=== PATIENT | female | born 1970 | race African-American/Black ===

== ENCOUNTER 2016-05-30 13:45 | Day surgery (SDC) | payer MEDICARE, MEDICAID ==
--- NOTE | 2016-05-30 08:23 | History and Physical Report ---
DATE OF EVALUATION: 05/30/2016. CHIEF COMPLAINT AND HISTORY OF CHIEF COMPLAINT: This patient presents with a history of an implanted spinal cord stimulator for intractable cervical radiculitis on 03/06/2016. She developed breakdown at the midline incisional site. She was seen after cultures identified infection. She was treated with antibiotics and, although resolving, the wound clinic requested removal of the device to facilitate healing. She is here for removal of an implanted spinal cord stimulator internal generator. PAST MEDICAL HISTORY: Hypertension. REVIEW OF SYSTEMS: The patient seems appropriate and in no acute distress. The remainder of the systems review shows glasses, dentures, headaches, blood pressure problems, chronic colon disease. SOCIAL HISTORY: Caffeine, cigarette smoking. FAMILY HISTORY: Asthma, diabetes, hypertension, cancer. PAST SURGICAL HISTORY: Gallbladder surgery, hysterectomy, spinal cord stimulator implant. ALLERGIES: Ultram, penicillin, Tylenol, morphine. MEDICATIONS ON ADMISSION: To be provided. PHYSICAL EXAMINATION: General: Height is 5 feet, 5 inches. Weight is 200 pounds. Vital Signs: Unavailable. HEENT: Within normal limits. Lungs: Clear. Heart: Regular rate and rhythm. Abdomen: Nontender. Musculoskeletal: Examination of the musculoskeletal system shows the incision for the leads approximating the mid to upper thoracic spine. There is a lower margin at the inferior incisional site which appears to be showing some mild breakdown. No drainage is identified. The incisional site at the posterior gluteal margin is intact. Sensory bates are intact. Neurologic: Cranial nerves are intact. IMPRESSIONS: 1. INTRACTABLE CERVICAL RADICULITIS, ICD10 CODE M54.13. 2. SPINAL CORD STIMULATOR INTERNAL GENERATOR WOUND BREAKDOWN. PLANS: The patient is here for removal of the stimulator based upon the request of the wound clinic. The procedure will be considered outpatient. An overnight stay should not be required. Selvin Medley D.O. Date Time JOB NUMBER: [id number] cc: Clarence Dwyer
[~2016-05-30 13:45] MED LIST: ACETAMINOPHEN 1000MG/100 ML PREMIX IV ONE; CLINDAMYCIN 600MG/50ML PREMIX 50 ML IVPB ONE; FAMOTIDINE 20MG TABLET PO ONE; MECLIZINE 25 MG TABLET PO ONE; METOCLOPRAMIDE 10 MG TABLET PO ONE; VANCOMYCIN HCL 1,000 MG in 0.9 % SODIUM CHLORIDE 250ML 250 ML IVPB ONE
[2016-05-30] MEDS ORDERED: HYDROMORPHONE HCL 2 MG/ML VIAL IV ONE (14:00)
[2016-05-30] MEDS ORDERED: PROPOFOL 10 MG/ML VIAL IV ONE (14:00)
[2016-05-30] MEDS ORDERED: LIDOCAINE 1% W/EPI 1:200,000 MPF 30ML SQ ONE (14:00)
[2016-05-30] MEDS ORDERED: BUPIVACAINE 0.5% W/EPI MPF 30 ML VIAL IVP ONE (14:00)
[2016-05-30] MEDS ORDERED: MIDAZOLAM HCL 2MG/2ML VIAL IV ONE (14:00)
[2016-05-30] MEDS ORDERED: LIDOCAINE 2% MDV (20MG/ML) 20ML VIAL IV ONE (14:00)
[2016-05-30] MEDS ORDERED: OXYCODONE/APAP 10MG-325MG TABLET PO ONE (14:00)
[2016-05-30] MEDS ORDERED: FENTANYL PF 100MCG/2ML VIAL IV ONE (14:00)
[2016-05-30 14:25] LABS: BASO % 0.9 % (0-6); EOS % 3.3 % (0-6); HEMATOCRIT 40.5 % (35.0-47.0); HEMOGLOBIN 13.7 gm/dl (11.6-16.0); LYMPH % 38.1 % (16-45); MEAN CELL VOLUME 92.9 fl (81-97); MEAN CORPUSCULAR HEMOGLOBIN 31.4 pg (27-33); MEAN CORPUSCULAR HGB CONC 33.8 g/dl (32-36); MEAN PLATELET VOLUME 9.1 fl (7.4-10.4); MONO % 8.7 % (0-9); PLATELET COUNT 303 K/uL (130-400); RED BLOOD COUNT 4.36 M/uL (3.80-5.40); RED CELL DISTRIBUTION WIDTH 13.4 % (11.5-14.5); WHITE BLOOD COUNT W/O DIFF 4.3 K/uL (4.2-12.2)
[2016-05-30 14:33] LABS: ANION GAP 11.1 (7-16); BLOOD UREA NITROGEN 8 mg/dL (7-17); CARBON DIOXIDE 27.9 mmol/L (22-30); CREATININE 0.8 mg/dL (0.52-1.04); EST GLOMERULAR FILTRATION RATE > 60 ml/min; GLUCOSE,RANDOM 90 mg/dL (70-110); INR 1.02; PARTIAL THROMBOPLASTIN TIME 40.5 SECONDS (24.5-39.1); PROTHROMBIN TIME (PATIENT) 11.5 SECONDS (9.5-12.1)
--- NOTE | 2016-05-31 13:41 | Operative Note ---
PAIN SERVICE OPERATIVE REPORT DATE OF PROCEDURE: 05/30/2016. PREOPERATIVE DIAGNOSES: 1. CERVICAL RADICULITIS, ICD10 CODE M54.13. 2. WOUND BREAKDOWN AND INFECTION. PROCEDURES: 1. Incision, subcutaneous dissection, and removal of two spinal cord stimulators. 2. Incision, subcutaneous dissection, and removal of internal generator and extensions. SURGEON: Selvin Medley D.O. ANESTHESIA: Local sedation. ANESTHESIA PROVIDER: Ramo Reynaga CRNA INDICATIONS: This patient presents with a history of an implanted spinal cord stimulator in February of 2016. The patient presented to a local emergency room approximately two to three weeks ago with what appeared to be a small, pustular area at the lower incisional site at the midline. It was tested and found to be infectious. At that point she was placed on placed on antibiotics and was treated by the wound clinic. At that point the wound clinic recommended the leads be removed. She is here for removal of the system DESCRIPTION OF PROCEDURE: Intravenous line, vital sign monitoring, and IV sedation. Prepped and draped with sterile technique. The midline incision at the cervical spine for the leads was infiltrated with local. An incision was made, and subcutaneous dissection was conducted to the leads. Cultures were taken. The leads, anchor, and all sutures were removed intact. Antibiotic irrigation and Bovie for hemostasis. At the left posterior superior gluteal margin generator pouch, the skin was infiltrated, an incision was made and subcutaneous dissection was conducted to the generator. The generator was then removed intact along with the all sutures. Antibiotic irrigation and Bovie for hemostasis. The incision was closed with Vicryl to the fascia and hemanth for the skin. Dressings were placed. She was transported to the recovery room stable showing no side effects from the procedure. DISCHARGE INSTRUCTIONS: 1. The sites will remain clean and dry. No showering or bathing in any way. 2. She is receiving intravenous antibiotics through an indwelling IV catheter placed by the wound clinic and managed by the wound clinic. She will continue under their direction. 3. She will be seen in the office in five to seven days for removal of the hemanth. 4. All other instructions were provided including numbers to contact given. 5. She was then discharged. Selvin Medley D.O. Date Time JOB NUMBER: [id number] cc: Clarence Dwyer
== END 2016-05-30 18:20 | disposition home or self-care (01) ==
LOC: SUR 13:45
PROVIDERS: ATTEND Pain Medicine Interventional Pain Medicine
DX: T81.4XXA Infection following a procedure, initial encounter (principal); A49.02 Methicillin resistant Staphylococcus aureus infection, unspecified site; I10 Essential (primary) hypertension; E78.00 Pure hypercholesterolemia, unspecified
CPT/HCPCS: 85025; 85730; 85610; 80048; 85002; 63661; 63688; 00300; J3370; J3010; J1170; J7050

== ENCOUNTER 2016-10-03 12:12 | Day surgery (SDC) | payer MEDICARE, MEDICAID ==
--- NOTE | 2016-10-03 06:53 | History and Physical - [facility] ---
CHIEF COMPLAINT/HISTORY OF CHIEF COMPLAINT: This patient with a history of intractable left sided cervical radiculitis had a spinal cord stimulator implanted on 03/06/16. Because of a pouch infection the system was removed on . After appropriate antibiotic management and clearance through infectious disease and her primary she is here for replacement of the system. PAST MEDICAL HISTORY: Hypertension. PAST SURGICAL HISTORY: Gallbladder surgery, hysterectomy, and spinal cord stimulator implant and removal. MEDICATIONS ON ADMISSION: List to be provided. ALLERGIES: ULTRAM, PENICILLIN, TYLENOL #3 AND MORPHINE. FAMILY/PSYCHOSOCIAL HISTORY: Social history - Caffeine and cigarette smoking. Family history - Asthma, diabetes, hypertension and cancer. SYSTEMS REVIEW: The patient seem appropriate in no acute distress. The remainder of the systems review is positive for glasses, dentures, headaches, blood pressure problems, and chronic colon disease. PHYSICAL EXAMINATION: Height is 5'5", weight is 200 pounds. Vital signs are not available. HEENT: Within normal limits. LUNGS: Clear. HEART: Regular rate and rhythm. ABDOMEN: Nontender. MUSCULOSKELETAL: Examination of the musculoskeletal system shows the primary pain pattern to be neck, shoulder, and arm all to the left. Sensory bates are intact. NEUROLOGIC: Cranial nerves are intact. IMPRESSION: CERVICAL RADICULITIS, ICD10 CODE M54.13. PLAN: This patient is here for replacement of spinal cord stimulator with internal generator. The procedure may be outpatient although an overnight stay will be evaluated. All of the potential risks, side effects, and complications have been carefully reviewed and discussed including nerve root injury, spinal cord injury, dural puncture and infection. JOSSE BYRNE D.O. Date & Time JOB NUMBER: [id number] MTDD
[~2016-10-03 12:12] MED LIST changes: -CLINDAMYCIN 600MG/50ML PREMIX 50 ML IVPB ONE
[2016-10-03] MEDS ORDERED: HYDROMORPHONE HCL 2 MG/ML VIAL IV ONE (14:00)
[2016-10-03] MEDS ORDERED: BUPIVACAINE 0.5% W/EPI MPF 30 ML VIAL IVP ONE (14:00)
[2016-10-03] MEDS ORDERED: LIDOCAINE 1% W/EPI 1:200,000 MPF 30ML SQ ONE (14:00)
[2016-10-03] MEDS ORDERED: TEMAZEPAM 15 MG CAPSULE PO PRN ×2 (16:39)
[2016-10-03] MEDS ORDERED: AL HYDROX/MAG HYDROX 30ML UD PO PRN (16:39)
[2016-10-03] MEDS ORDERED: METOCLOPRAMIDE HCL 10 MG/2 ML VIAL IVP PRN (16:39)
[2016-10-03] MEDS ORDERED: METOCLOPRAMIDE 10 MG TABLET PO PRN (16:39)
[2016-10-03] MEDS ORDERED: HYDROMORPHONE HCL 1 MG/ML CPJ IM PRN (16:39)
[2016-10-03] MEDS ORDERED: ACETAMINOPHEN 325 MG TAB PO PRN ×2 (16:39)
[2016-10-03] MEDS ORDERED: OXYCODONE/APAP 10MG-325MG TABLET PO PRN (16:39)
[2016-10-03] MEDS ORDERED: DIPHENHYDRAMINE HCL 25 MG CAPSULE PO PRN ×2 (16:39)
[2016-10-03] MEDS ORDERED: SENNOSIDES/DOCUSATE SODIUM UD CAPSULE PO PRN ×2 (16:39)
[2016-10-03] MEDS ORDERED: HYDROMORPHONE HCL 2 MG/ML VIAL IM PRN (16:39)
[2016-10-03] MEDS ORDERED: DIPHENHYDRAMINE HCL IV 50 MG/ML VIAL IVP PRN ×2 (16:39)
[2016-10-03] MEDS ORDERED: HYDROCODONE/APAP 7.5/325MG TABLET PO PRN ×2 (16:39)
[2016-10-03] MEDS ORDERED: PATIENT OWN MED: LORAZEPAM 0.5 MG PO PRN (17:13)
[2016-10-03] MEDS ORDERED: QUETIAPINE 200 MG PO SCH (18:00)
[2016-10-03] MEDS: OXYCODONE/APAP 10MG-325MG TABLET PO PRN (19:53)
[2016-10-03] MEDS: BUPROPION 200 MG PO SCH (21:04)
[2016-10-03] MEDS ORDERED: PATIENT OWN MED: SIMVASTATIN 20 MG PO SCH (22:00)
[2016-10-03] MEDS ORDERED: 0.9 % SODIUM CHLORIDE 10ML SYR IVP SCH (22:00)
[2016-10-03] MEDS ORDERED: PATIENT OWN MED: TRAZODONE 100 MG PO SCH (22:00)
[2016-10-03] MEDS ORDERED: PATIENT OWN MED: GABAPENTIN 300 MG PO SCH (22:00)
[2016-10-03] MEDS ORDERED: QUETIAPINE 300 MG PO SCH (22:00)
[2016-10-04] MEDS ORDERED: VANCOMYCIN HCL 1,000 MG in 0.9 % SODIUM CHLORIDE 250ML 250 ML IVPB ONE (01:30)
[2016-10-04] MEDS: OXYCODONE/APAP 10MG-325MG TABLET PO PRN ×2 (04:22→09:45)
[2016-10-04] MEDS ORDERED: PATIENT OWN MED: VRAYLAR 3 MG PO SCH (08:00)
[2016-10-04] MEDS ORDERED: HCTZ PO SCH (08:00)
[2016-10-04] MEDS ORDERED: PATIENT OWN MED: POTASSIUM 20 MEQ PO SCH (08:00)
[2016-10-04] MEDS ORDERED: PATIENT OWN MED: DULOXETINE 60 MG PO SCH (08:00)
[2016-10-04] MEDS ORDERED: LISINOPRIL PO SCH (08:00)
[2016-10-04] MEDS: BUPROPION 200 MG PO SCH (08:49)
[2016-10-04] MEDS ORDERED: PATIENT OWN MED: DULOXETINE 30 MG PO SCH (12:00)
--- NOTE | 2016-10-09 07:40 | RADIOLOGY REPORT ---
EXAM: CERVICAL SPINE HISTORY: POST SPINAL CORD STIMULATOR IMPLANT. TECHNIQUE: AP supine portable view of the cervical spine was obtained. Comparison: Supine portable spine 03/06/16. FINDINGS: Stimulator wires are seen which extend up from the thoracic level into the cervical level up to the approximate C2-C3 level. IMPRESSION: SPINAL STIMULATOR WIRES EXTEND UP THE CERVICAL REGION TO THE APPROXIMATE LEVEL OF THE C2-C3 INTERSPACE. JOB NUMBER: [id number] MTDD
--- NOTE | 2016-10-12 11:34 | Operative Note ---
DATE OF SURGERY: 10/03/2016. PREOPERATIVE DIAGNOSIS: Cervical radiculitis, ICD-10 Code M54.13. OPERATION: 1. Fluoroscopically guided right epidural access, T1-2, placement of spinal cord stimulator lead 1, a [employer] Infinion 16, 6 electrodes positioned left C2. 2. Complex programming lead 1, 20 minutes. 3. Fluoroscopically guided epidural access, right, T2-3, placement of spinal cord stimulator lead 2, a [employer] Infinion 16, 6 electrodes positioned left of midline, medial to lead 1. 4. Complex programming lead 2, 20 minutes. 5. Incision, subsection, anchoring of lead1 and lead 2 to deep supraspinous fascia using a [employer] locking anchor. 6. Incision, subsection, creation of subcutaneous pouch at right posterior gluteal margin, placement of generator, identified as [employer] programmable rechargeable. 7. Tunneling between pouches, placement of external portion of lead 1 and lead 2 into generator pouch, each lead interfaced with a bifurcate extension, each bifurcate extension interfaced with the generator. 8. Securing of generator pouch using nonabsorbable suture, placement of leads into pouch, and then closure of incision with Vicryl for fascia, running subcuticular Vicryl for skin, Dermabond closure. 9. Complex programming internal generator, recovery room 20 minutes. Surgeon: Selvin Medley DO. Anesthesia: Local sedation. Anesthesia Provider: SERA Veras. Indication: This patient presents with a history of intractable cervical radiculitis and a history of preimplantation with a cervical spinal cord stimulator at surgery. PROCEDURE: Intravenous line, vital sign monitoring, IV sedation, prep, drape, sterile technique with the patient prone. The epidural interspace right of the midline at T1-2 and 2-3 infiltrated local. Then 2 separate epidural needles with loss of resistance into the space at T1-2. Spinal cord stimulator lead 1, a [employer] Infinion 16, 6 electrodes, positioned left C2. Complex programming of lead 1 over 20 minutes resulting in a pattern of stimulation which extended down the shoulder and arm. With the epidural access right of the midline at T2-3, spinal cord stimulator lead 2, also a [employer] Infinion 16, 6 electrodes, positioned left of the midline, but slightly lateral to lead 1. Complex programming of lead 2 over 20 minutes resulted in a pattern of stimulation which came from the shoulder into the area of the neck. Both leads were activated simultaneously with a complete band of stimulation across the neck into the shoulder and arm. Patient indicating we are in all the areas of the pain. The skin above and below the needles infiltrated, an incision made in subcutaneous. Dissection was conducted in supraspinous fascia. Each lead was then anchored to the deep fascia with an anchoring device and nonabsorbable suture. Antibiotic irrigation, Bovie for hemostasis. At the right posterior gluteal fold margin, a site picked by the patient for the generator. A skin incision was made and subcutaneous dissection was conducted to form a pouch of suitable size and depth for the generator. Generator identified as [employer] programmable rechargeable. A tunneling tool was then used to carry the leads into the generator pouch, and then each lead was interfaced with a bifurcate extension. Each bifurcate extension was interfaced with the generator. The generator was placed into the pouch and secured to the fascia with nonabsorbable suture. The leads were placed and then both incisions were closed, Vicryl for fascia, running subcuticular Vicryl for skin. A Dermabond closure system was then placed. She was transported to the recovery room stable, showing no side effects from the procedure or the sedation. When fully awake and alert, complex programming of the internal generator over 20 minutes performed, reestablishing stimulation, pain control to all the appropriate areas. She was instructed on the use of the system, provided information on error messaging, and then prepared for discharge. DISCHARGE INSTRUCTIONS IN THE MORNING AFTER BEING MONITORED OVERNIGHT FOR OBSERVATION: 1. The sites will remain clean and dry. No showering or bathing in any way that would disrupt dressings. If it happens, contact the clinic. 2. She will follow up with the [facility] for appropriate antibiotic therapy. She is being provided with Levaquin 500 mg once a day for 14 days. The Wound Clinic will make the appropriate decision on specific antibiotic coverage. 3. Office will contact the patient in the next 2-3 days to set up the appointment to evaluate incisions in 3-5. All other instructions provided. Numbers to contact if problems given. She will be discharged in the morning. CC: DO Dr. Fabby Loving
== END 2016-10-04 10:15 | disposition home or self-care (01) ==
LOC: SUR 12:12 → MEDSURG 17:34 → SUR 10-04 10:15
PROVIDERS: ATTEND Pain Medicine Interventional Pain Medicine
DX: M54.13 Radiculopathy, cervicothoracic region (principal); I10 Essential (primary) hypertension; E78.00 Pure hypercholesterolemia, unspecified
CPT/HCPCS: 63685; 63650 ×2; 00300; 95972; 72020; Q9967; J3370; J1170; J7050

== ENCOUNTER 2016-12-12 10:55 | Day surgery (SDC) | payer MEDICARE, MEDICAID ==
--- NOTE | 2016-12-12 07:13 | History and Physical Report ---
DATE: 12/11/2016. CHIEF COMPLAINT: This is a patient with a history of an intractable cervical radiculitis. HISTORY OF PRESENT ILLNESS: She has a spinal cord stimulator in place which, over the last number of months, has migrated and resulted in a complete loss of stimulation patterns to the left side of the neck, shoulder, and arm. An x-ray performed confirmed migration at least one vertebral body inferior. She was given the option to remove, revise, or even referral to a surgeon for removal and laminectomy performed, and she opted to have us revise the system. PAST MEDICAL HISTORY: Hypertension. PAST SURGICAL HISTORY: Gallbladder surgery, hysterectomy, spinal cord stimulator. MEDICATIONS ON ADMISSION: To be provided. ALLERGIES: Ultram, penicillin, Tylenol 3, and morphine. SOCIAL HISTORY: Caffeine, cigarette smoking. FAMILY HISTORY: Asthma, diabetes, hypertension, cancer. REVIEW OF SYSTEMS: The patient is appropriate and in no acute distress. The remainder of the systems review shows glasses, dentures, headaches, blood pressure, chronic colon disease. PHYSICAL EXAMINATION: General: Height is 5 feet, 5 inches. Weight is 200 pounds. Vital Signs: Not available. HEENT: Within normal limits. Lungs: Clear. Heart: Regular rate and rhythm. Abdomen: Nontender. Musculoskeletal: Examination of the musculoskeletal system shows the incisional site for the leads in the upper thoracic, lower cervical region. The incisions are intact. The generator at the posterior gluteal margin is also intact. Sensory bates are intact. Neurologic: Cranial nerves are intact. Primary pain pattern is radicular, left neck, shoulder, and arm. IMPRESSION: 1. CERVICAL RADICULITIS, ICD-10 CODE M54.13. 2. SPINAL CORD STIMULATOR INTERNAL GENERATOR NONFUNCTIONAL. PLAN: The patient is here for revision of the stimulator on an outpatient basis. Our plan will be to open the incision and replace the stylettes. Unfortunately this will require releasing the leads at the generator pouch. Once the stylettes are inserted into the leads, we can attempt to direct the leads upward. The patient understands the potential risks, side effects, and complications including the potential that we may be unsuccessful in regaining the appropriate position; in which case the system will be removed. JOSSE BYRNE D.O. Date & Time JOB NUMBER: [id number] cc: Clarence Dwyer
[~2016-12-12 10:55] MED LIST changes: +ACETAMINOPHEN 1,000 MG/100 ML BTL IV ONE; -ACETAMINOPHEN 1000MG/100 ML PREMIX IV ONE; +CLINDAMYCIN 600MG/50ML PREMIX 600 MG/50 ML BAG IVPB ONE; +VANCOMYCIN HCL 1,000 MG in 0.9 % SODIUM CHLORIDE 250ML 250 ML IV ONE; -VANCOMYCIN HCL 1,000 MG in 0.9 % SODIUM CHLORIDE 250ML 250 ML IVPB ONE
[2016-12-12] MEDS ORDERED: CLINDAMYCIN 600MG/4 ML VIAL IVPB ONE (14:00)
[2016-12-12] MEDS ORDERED: FENTANYL PF 100MCG/2ML VIAL IV ONE (14:00)
[2016-12-12] MEDS ORDERED: MIDAZOLAM HCL 2MG/2ML VIAL IV ONE (14:00)
[2016-12-12] MEDS ORDERED: BUPIVACAINE 0.5% W/EPI MPF 30 ML VIAL IVP ONE (14:00)
[2016-12-12] MEDS ORDERED: LIDOCAINE 1% W/EPI 1:200,000 MPF 30ML SQ ONE (14:00)
[2016-12-12] MEDS ORDERED: HYDROMORPHONE HCL 2 MG/ML VIAL IV ONE (14:00)
[2016-12-12] MEDS ORDERED: LIDOCAINE 2% MDV (20MG/ML) 20ML VIAL IV ONE (14:00)
[2016-12-12] MEDS ORDERED: VANCOMYCIN HCL 1 GM VIAL IVPB ONE (14:00)
[2016-12-12] MEDS ORDERED: CLINDAMYCIN IVPB ONE (14:00)
[2016-12-12] MEDS ORDERED: HYDROCODONE/APAP 7.5/325MG TABLET PO PRN ×2 (15:18)
[2016-12-12] MEDS ORDERED: METOCLOPRAMIDE HCL 10 MG/2 ML VIAL IVP PRN (15:18)
[2016-12-12] MEDS ORDERED: HYDROMORPHONE HCL 1 MG/ML CPJ IM PRN (15:18)
[2016-12-12] MEDS ORDERED: TEMAZEPAM 15 MG CAPSULE PO PRN ×2 (15:18)
[2016-12-12] MEDS ORDERED: SENNOSIDES/DOCUSATE SODIUM UD CAPSULE PO PRN ×2 (15:18)
[2016-12-12] MEDS ORDERED: METOCLOPRAMIDE 10 MG TABLET PO PRN (15:18)
[2016-12-12] MEDS ORDERED: OXYCODONE/APAP 10MG-325MG TABLET PO PRN ×2 (15:18)
[2016-12-12] MEDS ORDERED: DIPHENHYDRAMINE HCL 25 MG CAPSULE PO PRN ×2 (15:18)
[2016-12-12] MEDS ORDERED: HYDROMORPHONE HCL 2 MG/ML VIAL IM PRN (15:18)
[2016-12-12] MEDS ORDERED: AL HYDROX/MAG HYDROX 30ML UD PO PRN (15:18)
[2016-12-12] MEDS ORDERED: DIPHENHYDRAMINE HCL IV 50 MG/ML VIAL IVP PRN ×2 (15:18)
[2016-12-12] MEDS ORDERED: ACETAMINOPHEN 325 MG TAB PO PRN ×2 (15:18)
[2016-12-12] MEDS ORDERED: 0.9 % SODIUM CHLORIDE 10ML SYR IVP SCH (22:00)
[2016-12-13] MEDS ORDERED: VANCOMYCIN HCL 1,000 MG in 0.9 % SODIUM CHLORIDE 250ML 250 ML IVPB ONE (00:30)
--- NOTE | 2016-12-13 04:54 | Operative Note ---
DATE: 12/12/2016. PREOPERATIVE DIAGNOSES: 1. CERVICAL RADICULITIS, ICD-10 CODE M54.13. 2. SPINAL CORD STIMULATOR, TWO LEADS, INTERNAL GENERATOR NONFUNCTIONAL. POSTOPERATIVE DIAGNOSES: 1. CERVICAL RADICULITIS, ICD-10 CODE M54.13. 2. SPINAL CORD STIMULATOR, TWO LEADS, INTERNAL GENERATOR NONFUNCTIONAL. PROCEDURES: 1. Fluoroscopically guided incision, subcutaneous dissection, and revision of spinal cord stimulator lead 1, [employer] Infinion 16 with 6 electrodes, left C2. 2. Fluoroscopically guided incision, subcutaneous dissection, and revision of spinal cord stimulator lead 2, [employer] Infinion 16 with 6 electrodes, left lateral C2. 3. Anchoring of lead 1 and lead 2 to supraspinous fascia. 4. Incision, subcutaneous dissection, and replacement of right posterior gluteal internal pulse generator identified as [employer] programmable rechargeable with bifurcated extensions. 5. Interface new revisions with spinal cord stimulators tunneled into generator pouch. Securing of generator to posterior fascia. Anchoring, suturing, and stabilization of lead 1 and lead 2 in lead pouch. 6. Closure of incisions with Vicryl to the fascia and running subcuticular Vicryl to the skin. Dermabond closure. 7. Complex recovery room programming of internal generator, two stimulators, 20 minutes. SURGEON: Selvin Medley D.O. ANESTHESIA: Local sedation. ANESTHESIA PROVIDER: Ramo Reynaga CRNA INDICATIONS: This patient presents with a history of intractable cervical radiculitis. Two cervical spinal cord stimulators, both identified as [employer] Infinion 16, had previously been placed. Although she had initial success with stimulation patterns, over a period of approximately several months , there was loss of stimulation patterns into the neck. X-ray confirmed there had been lead migration inferior of one-half vertebral body. She was given the options to remove or revise, and she opted to revise or possibly replace. DESCRIPTION OF PROCEDURE: Intravenous lines, vital sign monitoring, and intravenous sedation by Anesthesia. The patient was positioned prone. Sterile prep and sterile technique. The midline incision and the posterior gluteal margin incision on the right were both infiltrated with local. An incision was made and subcutaneous dissection was conducted to the two leads approximating T1 through T3 on the right. At the right posterior gluteal margin, the generator pouch was infiltrated. An incision was made and subcutaneous dissection was conducted to the generator. The generator was then removed. The connections to the bifurcate extensions were , and then the bifurcate extensions were removed off the leads in the generator pouch. At that point, the two leads were pulled toward the lead incision at midline T1 through T3. Two locking anchors were in place. Each anchor was released. Stylettes were placed within the leads. Using continuous imaging, lead 1 and lead 2 both were revised and repositioned. The locking anchor of lead 1 was removed and replaced. Lead 1 and lead 2 after revision were moved superior and medial. Complex programming of lead 1 over 20 minutes was conducted. This was followed by complex programming of lead 2 over 20 minutes. This resulted in improved patterns of stimulation across the neck which had been lost with migration. The patient was given the option to implant or remove, and she opted to implant. She was then resedated. Lead 1 had been re-anchored with a new locking device and was resutured to the deep fascia. Lead 2 had been re-anchored and was re-secured to the deep supraspinous fascia. More aggressive anchoring was then performed, securing the leads proximal and distal to the anchor with nonabsorbable suture. The two leads were then tunneled into the generator pouch, and then each lead was interfaced with a new bifurcate extension. Each bifurcate extension was then interfaced or replaced, and new internal pulse generator, identified as [employer] programmable rechargeable, was placed. Antibiotic irrigation and Bovie for hemostasis. The generator was placed into the pouch and secured to the posterior fascia with nonabsorbable suture. The leads were coiled and placed into their pouch. Both incisions were then closed with Vicryl to the fascia and hemanth for the skin. An OpSite with Telfa pad was then placed over the region. The patient was transported to the recovery room stable, showing no side effects from the procedure or the sedation. When fully awake and alert, complex reprogramming was performed, re-establishing stimulation of pain control to all of the appropriate areas. She was given the options to stay overnight for observation or go home, and she opted to be discharged. DISCHARGE INSTRUCTIONS: 1. The sites are to remain clean and dry. No showering or bathing until she is seen in the office in five to seven days. The office will contact the patient to set up the evaluation. 2. Standard medications to be resumed including Levaquin the antibiotic 500 mg once a day for 14 days. 3. Her activity should stay low for the next five to seven days or until she returns for evaluation. She should keep to a minimum bend, lift, push, pull. When she is seen for evaluation of the incision in five to seven days, she will be cleared for further activities. 4. All other instructions were provided. Numbers to contact were given and possible problems were explained. She will then be discharged. JOB NUMBER: [id number] cc: Clarence Dwyer
--- NOTE | 2016-12-13 09:54 | RADIOLOGY REPORT ---
EXAM: CERVICAL SPINE, SINGLE VIEW HISTORY: POSTOP. TECHNIQUE: A single AP view of the cervical spine was obtained. Comparison: 10/03/16 spine. Comparison is also made with the intraoperative images from 12/12/16. FINDINGS: There are stimulating wires projecting over the right hemithorax with the distal tips projecting over the body of C2. Correlate with intraoperative findings. IMPRESSION: STIMULATING WIRES IN PLACE, ABOVE. JOB NUMBER: [id number] MTDD
== END 2016-12-12 17:30 | disposition home or self-care (01) ==
LOC: SUR 10:55 → MEDSURG 15:49 → SUR 17:30
PROVIDERS: ATTEND Pain Medicine Interventional Pain Medicine
DX: T85.192A Other mechanical complication of implanted electronic neurostimulator of spinal cord electrode (lead), initial encounter (principal); T85.193A Other mechanical complication of implanted electronic neurostimulator, generator, initial encounter; M54.13 Radiculopathy, cervicothoracic region; E78.00 Pure hypercholesterolemia, unspecified; I10 Essential (primary) hypertension
CPT/HCPCS: 63663; 63685; 00300; 95972; 72020; J3370; J3010; J1170; J7050

== ENCOUNTER 2017-06-26 07:57 | Day surgery (SDC) | payer MEDICARE, MEDICAID ==
[2017-06-26] MEDS ORDERED: LABETALOL HCL 5MG/ML, 20ML VIAL IVPB ONE (07:58)
[2017-06-26] MEDS ORDERED: BUPIVACAINE 0.75% W/EPI MPF 30ML VIAL IVP ONE (07:58)
[2017-06-26] MEDS ORDERED: LIDOCAINE 1% W/EPI 1:200,000 MPF 30ML SQ ONE (07:58)
[2017-06-26] MEDS ORDERED: OXYCODONE/APAP 10MG-325MG TABLET PO ONE (07:58)
[2017-06-26] MEDS ORDERED: MIDAZOLAM HCL 2MG/2ML VIAL IV ONE (07:58)
[2017-06-26] MEDS ORDERED: DEXAMETHASONE PRESERVATIVE FREE 10MG/ML VIAL IV ONE (07:58)
[2017-06-26] MEDS ORDERED: FENTANYL PF 100MCG/2ML VIAL IV ONE (07:58)
[2017-06-26] MEDS ORDERED: PROPOFOL 10 MG/ML VIAL IV ONE (07:58)
[2017-06-26] MEDS ORDERED: LIDOCAINE 2% MDV (20MG/ML) 20ML VIAL IV ONE (07:58)
--- NOTE | 2017-06-27 15:08 | Operative Note - [facility] ---
DATE OF SURGERY: 06/26/17 PREOPERATIVE DIAGNOSIS: CERVICAL SPONDYLOSIS WITHOUT MYELOPATHY, ICD-10 CODE = M47.812. OPERATION: RADIOFREQUENCY RHIZOTOMY LEFT CERVICAL FACETS 4-5, 5-6, AND 6 -7. SURGEON: JOSSE BYRNE D.O. ANESTHESIA: LOCAL SEDATION. ANESTHESIA PROVIDER: KELECHI LAZARO CRNA. INDICATION: This patient presents with left-sided neck and shoulder pain. Diagnostics show extensive multiple levels of spondylosis of the cervical spine. A facet series and previous rhizotomy 75-plus percent pain control. Due to the failure of therapy and the success of the previous facets and rhizotomies , she is here for repeat rhizotomy. PROCEDURE: Intravenous line, vital sign monitoring, IV sedation, prepped, draped, sterile technique. Facets on the left at 4-5, 5-6, and 6-7 cervical spine marked and infiltrated. A #20-gauge rhizotomy cannula positioned. Stimulation trials conducted. Rhizotomy burn performed. Local with anti- inflammatory into the sites. Topical antibiotics. Sterile dressing applied. We will monitor and evaluate. cc: Dr. Ramo Sequeira JOB NUMBER: [id number] MTDD
== END 2017-06-26 10:22 | disposition home or self-care (01) ==
LOC: SUR 07:57
PROVIDERS: ATTEND Pain Medicine Interventional Pain Medicine
DX: M47.812 Spondylosis without myelopathy or radiculopathy, cervical region (principal); I10 Essential (primary) hypertension; E78.00 Pure hypercholesterolemia, unspecified; F41.8 Other specified anxiety disorders; M06.9 Rheumatoid arthritis, unspecified
CPT/HCPCS: 64633; 64634 ×2; 01936; J1100; J3010

== ENCOUNTER → 2018-05-14 | Day surgery (SDC) | payer MEDICARE, MEDICAID ==
[~2018-05-14] MED LIST changes: -ACETAMINOPHEN 1,000 MG/100 ML BTL IV ONE; +BUPIVACAINE 0.5% W/EPI MPF 30 ML VIAL IVP ONE; -CLINDAMYCIN 600MG/50ML PREMIX 600 MG/50 ML BAG IVPB ONE; +DEXAMETHASONE PRESERVATIVE FREE 10MG/ML VIAL IV ONE; -FAMOTIDINE 20MG TABLET PO ONE; +FENTANYL PF 100MCG/2ML VIAL IV ONE; +LIDOCAINE 1% W/EPI 1:200,000 MPF 30ML SQ ONE; +LIDOCAINE 2% MDV (20MG/ML) 20ML VIAL IV ONE; -MECLIZINE 25 MG TABLET PO ONE; -METOCLOPRAMIDE 10 MG TABLET PO ONE; +MIDAZOLAM HCL 2MG/2ML VIAL IV ONE; +PROPOFOL 10 MG/ML VIAL IV ONE; -VANCOMYCIN HCL 1,000 MG in 0.9 % SODIUM CHLORIDE 250ML 250 ML IV ONE
--- NOTE | 2018-05-16 08:00 | Operative Note ---
DATE OF SURGERY: 05/14/2018. PRIMARY CARE PHYSICIAN: Ramo Sequeira D.O. PREOPERATIVE DIAGNOSIS: CERVICAL SPONDYLOSIS WITHOUT MYELOPATHY, ICD-10 CODE M47.812. ANESTHESIA: Local sedation. ANESTHESIA PROVIDER: Ramo Reynaga CRNA. PROCEDURE: Radiofrequency rhizotomy of the left cervical facets at 4-5, 5-6, and 6-7. INDICATIONS: This patient presents with left-sided neck and shoulder pain. Diagnostic studies show extensive multilevel facet spondylosis. A facet series provided 75 percent control. Due to the failure of therapy and the success of the facet series, the patient presents for rhizotomy for more long-term relief. DESCRIPTION OF PROCEDURE: Intravenous lines, vital sign monitoring, and intravenous sedation. Prepped and draped with sterile technique. Under imaging the cervical facets in the area of pain on the left were identified and marked at 4-5, 5-6, and 6-7. Each one of these points on the skin was infiltrated infiltrated. A 22-gauge rhizotomy cannula was positioned. Stimulation trial was conducted and rhizotomy burn was performed. Local with anti-inflammatory into the sites. Topical antibiotic and sterile dressing applied. Will monitor and evaluate. cc: Ramo Sequeira D.O. JOB NUMBER: [id number] MTDD
== END | disposition home or self-care (01) ==
LOC: SUR 08:09
PROVIDERS: ATTEND Pain Medicine Interventional Pain Medicine
DX: M47.812 Spondylosis without myelopathy or radiculopathy, cervical region (principal); I10 Essential (primary) hypertension; E78.00 Pure hypercholesterolemia, unspecified; I49.3 Ventricular premature depolarization; F17.210 Nicotine dependence, cigarettes, uncomplicated

== ENCOUNTER 2018-06-18 11:59 | Day surgery (SDC) | payer MEDICARE, MEDICAID ==
--- NOTE | 2018-06-17 19:09 | History and Physical - [facility] ---
DATE OF EVALUATION: 06/17/18 CHIEF COMPLAINT/HISTORY OF CHIEF COMPLAINT: This patient with a history of an intractable cervical radiculopathy has a spinal cord stimulator implant in place since 10/03/16. Over the last number of months, this patient has had a rapid progression of pain which has changed the area of involvement. Initially, this appeared to be somewhat more to the left but the patient's pain has been extending to the right and down both extremities. The ability to program the system has been somewhat limited. We have been able to maintain pain control to the original area of pain but not the new changed area of pain. She is here for a battery swap from the old to the new [employer] generator, which has greater capabilities and program options and the ability to superimpose programs for better stimulation with the intent of gaining control of the new area of pain. PAST MEDICAL HISTORY: Hypertension. PAST SURGICAL HISTORY: Gallbladder surgery. Hysterectomy. Spinal cord stimulator implant. MEDICATIONS: Provided. ALLERGIES: ULTRAM. PENICILLIN. TYLENOL-3. MORPHINE. SOCIAL HISTORY: Caffeine. Cigarette smoking. FAMILY HISTORY: Asthma. Diabetes. Hypertension. Cancer. SYSTEMS REVIEW: The patient is appropriate in no acute distress. Remainder of the systems review; glasses, dentures, headaches, blood pressure disease, colon disease. PHYSICAL EXAMINATION: GENERAL: Height is 5'5", weight is 200. VITAL SIGNS: No vital signs. HEENT: Within normal limits. LUNGS: Clear. HEART: Rapid and regular. ABDOMEN: Nontender. MUSCULOSKELETAL: Examination of the musculoskeletal system shows the generator pouch in the right posterior gluteal margin. The incision is intact. Primary pain pattern radicular in both of her upper extremities. NEUROLOGIC: Cranial nerves are intact. IMPRESSION: 1. CERVICAL RADICULOPATHY, ICD-10 CODE = M54.12. 2. SPINAL CORD STIMULATOR INTERNAL GENERATOR. PLAN: The patient is here for a swap or exchange of a previous generator to the new generation internal pulse generator called WaveWriter for its improved technology and program ability. The procedure will be considered outpatient. cc: Dr. Ramo Sequeira JOB NUMBER: [id number] MTDD
[~2018-06-18 11:59] MED LIST changes: +ACETAMINOPHEN 1,000 MG/100 ML BTL IV ONE; -BUPIVACAINE 0.5% W/EPI MPF 30 ML VIAL IVP ONE; -DEXAMETHASONE PRESERVATIVE FREE 10MG/ML VIAL IV ONE; +FAMOTIDINE 20MG TABLET PO ONE; -FENTANYL PF 100MCG/2ML VIAL IV ONE; -LIDOCAINE 1% W/EPI 1:200,000 MPF 30ML SQ ONE; -LIDOCAINE 2% MDV (20MG/ML) 20ML VIAL IV ONE; +MECLIZINE 25 MG TABLET PO ONE; +METOCLOPRAMIDE 10 MG TABLET PO ONE; -MIDAZOLAM HCL 2MG/2ML VIAL IV ONE; -PROPOFOL 10 MG/ML VIAL IV ONE; +VANCOMYCIN HCL 1,000 MG in DEXTROSE 5 % IN WATER 250 ML IVPB ONE
[2018-06-18] MEDS ORDERED: MIDAZOLAM HCL 2MG/2ML VIAL IV ONE (12:00)
[2018-06-18] MEDS ORDERED: PROPOFOL 10 MG/ML VIAL IV ONE (12:00)
[2018-06-18] MEDS ORDERED: LIDOCAINE 2% MDV (20MG/ML) 20ML VIAL IV ONE (12:00)
[2018-06-18] MEDS ORDERED: Clindamycin 600mg vial 150 MG/ML VIAL IVPB ONE (12:00)
[2018-06-18] MEDS ORDERED: LIDOCAINE 1% W/EPI 1:200,000 MPF 30ML SQ ONE (12:00)
[2018-06-18] MEDS ORDERED: BUPIVACAINE 0.5% W/EPI MPF 30 ML VIAL IVP ONE (12:00)
[2018-06-18] MEDS ORDERED: FENTANYL PF 100MCG/2ML VIAL IV ONE (12:00)
[2018-06-18 12:45] LABS: BLOOD UREA NITROGEN 6 mg/dL (6-20); CREATININE 0.8 mg/dL (0.5-0.9); EST GLOMERULAR FILTRATION RATE > 60 mL/min; GLUCOSE,RANDOM 97 mg/dL (74-109)
--- NOTE | 2018-06-21 09:56 | Operative Note - [facility] ---
DATE OF SURGERY: 06/18/18 PREOPERATIVE DIAGNOSES: 1. CERVICAL RADICULOPATHY, ICD10 CODE = M54.12. 2. SPINAL CORD STIMULATOR INTERNAL GENERATOR. OPERATION: INCISION, SUBCUTANEOUS DISSECTION, AND REMOVAL AND REPLACEMENT OF OF INTERNAL PULSE GENERATOR WITH RELOCATION OF GENERATOR BY PATIENT REQUEST. SURGEON: JOSSE BYRNE D.O. ANESTHESIA: LOCAL SEDATION. ANESTHESIA PROVIDER: SERA Whalen INDICATION: This patient presents with a history of cervical radiculopathy managed by spinal cord stimulation. Over the last six to seven months, this patient's pain patterns have been changing and moving across the opposite upper extremity. Attempts at programming our current system, which was set for unilateral pain, was not able to adjust and account for the opposite progression of her pain. She is here for replacement of the generator with a new [employer] WaveWriter generator, which has different technology, the ability to superimpose waveforms, generate greater waveforms, and extend stimulation patterns; this in attempt to gain control of the new areas of pain. Along with that, the generator pouch has been somewhat uncomfortable by the patient and she is requesting we relocate up or down the generator. PROCEDURE: Intravenous line, vital sign monitoring, IV sedation. Prepped and draped sterile technique. Under imaging, the skin over the generator pouch at the right posterior gluteal margin infiltrated with local, incision made, and subcutaneous dissection was conducted to the generator pouch. The generator pouch was then opened and the generator exteriorized. Immediately identified for approximately 5 to 8 inches of extension, which was coiled into the pouch underneath the generator. It was felt to a certain extent that the deformity and perhaps pressure on the pouch was related to the extension and redundancy of the extensions. The pouch was then widened both superior and inferior. The generator was changed to the WaveWriter. The extensions were tucked into a small pouch formed above the generator and then that small pouch closed with a Vicryl suture continuing the extension above the generator. The generator was then moved into the lower pouch also formed through the revision and then secured to the fascia with nonabsorbable suture thus placing the extension and the generator at different locations within the pouch. Antibiotic irrigation. Bovie for hemostasis. The incision was then closed using STRATAFIX suture 2-0 fascia, 3-0 skin. Dermabond closure. She was transported to the Recovery Room stable. No side-effects from the procedure or the sedation. When fully awake and alert, she was prepared for discharge. DISCHARGE INSTRUCTIONS: 1. Sites remain clean and dry. The Dermabond will allow showering. She should not remove the dressing. She should not sit in water but shower is appropriately cleared. 2. Standard medications resumed including the antibiotic Levaquin 500 mg once a day for 14 days. 3. The office will contact the patient in 24-48 hours to set up a time in 7-10 days to evaluate the site. Until then, her activities should stay controlled. All other instructions were provided, numbers to contact, problems given. She was then discharged. cc: Dr. Ramo Sequeira JOB NUMBER: [id number] MTDD
== END 2018-06-18 15:59 | disposition home or self-care (01) ==
LOC: SUR 11:59
PROVIDERS: ATTEND Pain Medicine Interventional Pain Medicine
DX: M54.12 Radiculopathy, cervical region (principal); I10 Essential (primary) hypertension; E78.00 Pure hypercholesterolemia, unspecified; D64.9 Anemia, unspecified
CPT/HCPCS: 63685; 00300; 95972; 80048; 85002; J3370; J3010; C1820; J7060

== ENCOUNTER 2018-11-12 06:00 | Day surgery (SDC) | payer MEDICARE, MEDICAID ==
[2018-11-12] MEDS ORDERED: LIDOCAINE 2% MDV (20MG/ML) 20ML VIAL IV ONE (06:01)
[2018-11-12] MEDS ORDERED: PROPOFOL 10 MG/ML VIAL IV ONE (06:01)
[2018-11-12] MEDS ORDERED: FENTANYL PF 100MCG/2ML VIAL IV ONE (06:01)
[2018-11-12] MEDS ORDERED: MIDAZOLAM HCL 2MG/2ML VIAL IV ONE (06:01)
[2018-11-12] MEDS ORDERED: RINGERS SOLUTION,LACTATED 1,000 ML IV ONE (06:45)
[2018-11-12] MEDS ORDERED: BUPIVACAINE 0.5% W/EPI MPF 30 ML VIAL SQ ONE (07:56)
[2018-11-12] MEDS ORDERED: DEXAMETHASONE PRESERVATIVE FREE 10MG/ML VIAL SQ ONE (07:56)
[2018-11-12] MEDS ORDERED: LIDOCAINE 1% W/EPI 1:100,000 MDV 20 ML VIAL SQ ONE (07:56)
[2018-11-12] MEDS ORDERED: HYDROCODONE/APAP 7.5/325MG TABLET PO ONE (08:37)
--- NOTE | 2018-11-14 13:00 | Operative Note ---
DATE OF SURGERY: 11/12/2018 PREOPERATIVE DIAGNOSIS: Left cervical spondylosis without myelopathy, ICD10 code M47.812. OPERATION: Fluoroscopic-guided radiofrequency rhizotomy of left cervical facets 4-5, 5-6, 6-7. INDICATIONS: This patient presents with pain which is left-sided neck and shoulder. Diagnostics show multiple-level spondylosis. A facet series 75% to 90% pain control. Due to the failure of therapy, success of facet series, patient presents for rhizotomy for more long-term relief. Diagnostics show multiple- level spondylitis change. SURGEON: Selvin Medley, ANESTHESIA: Local with sedation. ANESTHESIA PROVIDER: Ramo Reynaga PROCEDURE: Intravenous line, vital sign monitoring, IV sedation, prepped and draped in sterile technique. Under imaging, cervical facets on the left at 4-5, 5-6, and 6-7 marked, infiltrated. A 22-gauge rhizotomy cannula positioned. Stimulation trial was conducted. Rhizotomy burn performed. Local with antiinflammatory into the sites. Topical antibiotic and sterile dressing applied. Will monitor and evaluate. CC: Dr. Rajan STREETER
== END 2018-11-12 08:55 | disposition home or self-care (01) ==
LOC: SUR 06:00
PROVIDERS: ATTEND Pain Medicine Interventional Pain Medicine
DX: M47.812 Spondylosis without myelopathy or radiculopathy, cervical region (principal); I10 Essential (primary) hypertension; E78.00 Pure hypercholesterolemia, unspecified; D64.9 Anemia, unspecified; F17.210 Nicotine dependence, cigarettes, uncomplicated; Z86.14 Personal history of Methicillin resistant Staphylococcus aureus infection
CPT/HCPCS: J7120